=== PATIENT | female | born 1995 | race Two or more races ===

== ENCOUNTER 2016-07-06 14:54 | Emergency (ER) | payer BC ==
[~2016-07-06] VITALS: Ht 154.9 cm; Wt 50.8 kg
[2016-07-06] MEDS ORDERED: predniSONE 20 MG TABLET ONE (15:00)
[2016-07-06] MEDS ORDERED: ALBUTEROL FS 2.5 MG/3 ML VIAL.NEB ONE (15:02)
[2016-07-06] MEDS ORDERED: IPRATROPIUM NEB FS 0.5 MG/2.5 ML AMPUL.NEB ONE (15:02)
[2016-07-06] MEDS ORDERED: predniSONE 20 MG TABLET PO ONE (15:30)
[2016-07-06] MEDS ORDERED: ALBUTEROL FS 2.5 MG/3 ML VIAL.NEB CONTNEB ONE (15:30)
[2016-07-06] MEDS ORDERED: IPRATROPIUM NEB FS 0.5 MG/2.5 ML AMPUL.NEB NEB ONE (15:30)
--- NOTE | 2016-07-06 16:00 | NUR ---
PT. VERBALIZED UNDERSTANDING OF AFTERCARE INSTRUCTIONS.Patient discharged to home in stable condition. Written and verbal after care instructions given. Patient verbalizes understanding of instruction.
[2016-07-06 16:01] VITALS: BP 121/87
== END 2016-07-06 16:02 | disposition home or self-care (01) ==
LOC: ER 15:00
DX: J45.909 Unspecified asthma, uncomplicated (principal); F41.9 Anxiety disorder, unspecified
CPT/HCPCS: 94640; 99283; A4606; J7512; Z7610

== ENCOUNTER 2017-10-18 18:17 | Emergency (ER) | payer BC ==
[~2017-10-18] VITALS: Ht 154.9 cm; Wt 52.2 kg
--- NOTE | 2017-10-18 18:20 | NUR ---
PT RTO ER BED 05 C/O ABDOMIANL CRAMPING W/ VAGINAL BLEEDING SINCE 299 TODAY. GOWNED AND PLACED ON MONITOR. VSS. AWAITING MD ANDRES.
--- NOTE | 2017-10-18 20:28 | NUR ---
GUDELIA CASTILLO AT BEDSIDE FOR EVAL.
[2017-10-18] MEDS ORDERED: IV NS 0.9% 1,000 ML BAG IV ONE (20:30)
[2017-10-18] MEDS ORDERED: ACETAMINOPHEN 325 MG TABLET PO ONE (20:30)
--- NOTE | 2017-10-18 20:32 | NUR ---
ORESTES CASTILLO BACK AT BEDSIDE FOR PELVIC EXAM.
--- NOTE | 2017-10-18 20:48 | NUR ---
U/S TECH AT BEDSIDE FOR PELVIC ULTRASOUND.
[2017-10-18] MEDS ORDERED: ACETAMINOPHEN 325 MG TABLET ONE (20:55)
[2017-10-18 21:40] LABS: BASOPHILS % (AUTO) 0.6 % (0.0-2.0); EOSINOPHILS % (AUTO) 3.1 % (0.0-6.0); HEMATOCRIT 42 % (33-45); HEMOGLOBIN 13.8 g/dL (11.5-14.8); LYMPHOCYTES % (AUTO) 27.4 % (20.0-44.0); MEAN CORPUSCULAR HEMOGLOBIN 29 PG (26.0-33.0); MEAN CORPUSCULAR HGB CONC 33 g/dl (31.0-36.0); MEAN CORPUSCULAR VOLUME 88 fL (82-100); MONOCYTES # (AUTO) 0.5 /CMM (0.1-1.30); MONOCYTES % (AUTO) 7.4 % (2.0-12.0); NEUTROPHILS # (AUTO) 4.5 /CMM (1.8-8.9); NEUTROPHILS % (AUTO) 61.5 % (43.0-81.0); PLATELET COUNT (AUTO) 234 /CMM (150-450); RDW COEFFICIENT OF VARIATION 12.9 (11.5-15.0); RED BLOOD CELL COUNT(AUTO) 4.77 MIL/uL (4.0-5.2); WHITE BLOOD COUNT (AUTO) 7.2 K/uL (4.3-11.0)
[2017-10-18 21:42] LABS: APPEARANCE,URINE Slightly Cloudy (CLEAR); BILIRUBIN,URINE Negative (NEGATIVE); BLOOD, URINE Large Ery/uL (NEGATIVE); COLOR,URINE Yellow (YELLOW); KETONES,URINE Negative (NEGATIVE); LEUKOCYTE ESTERASE ,URINE Negative (NEGATIVE); NITRITE, URINE Negative (NEGATIVE); PH,URINE 7.5 (5.0-8.0); PROTEIN,URINE 30 mg/dl (NEGATIVE); UGLUCOSE Negative (NEGATIVE)
[2017-10-18 21:50] LABS: CALCIUM, SERUM 8.5 mg/dL (8.5-10.1); POTASSIUM 3.9 mmol/L (3.5-5.1)
[2017-10-18 21:58] LABS: INR 0.99 (0.85-1.15)
[2017-10-18 21:58] LABS: BACTERIA,URINE Rare /HPF (None Seen); RBC,URINE 21-50 /HPF (0-2); SQUAMOUS EPITHELIAL CELL,UR Few /HPF (None Seen); WBC,URINE NONE SEEN /HPF (0-3)
--- NOTE | 2017-10-18 22:46 | NUR ---
Patient discharged to home in stable condition. Written and verbal after care instructions given. Patient verbalizes understanding of instruction.IV removed. Catheter intact and site benign. Pressure and 4x4 applied to site. No bleeding noted.
[2017-10-18 22:49] VITALS: BP 116/77
== END 2017-10-18 22:50 | disposition home or self-care (01) ==
LOC: ER 18:18
DX: N93.9 Abnormal uterine and vaginal bleeding, unspecified (principal); T19.2XXA Foreign body in vulva and vagina, initial encounter; N94.89 Other specified conditions associated with female genital organs and menstrual cycle; J45.909 Unspecified asthma, uncomplicated; F41.9 Anxiety disorder, unspecified; Z98.890 Other specified postprocedural states; X58.XXXA Exposure to other specified factors, initial encounter; Y93.89 Activity, other specified; Y92.89 Other specified places as the place of occurrence of the external cause; Y99.8 Other external cause status
CPT/HCPCS: 36415; 76856; 80048; 81001; 84703; 85025; 85730; 99285; A4606; J7030; Z7610; 81000-TC

== ENCOUNTER 2019-07-09 21:26 | Emergency (ER) | payer BC ==
[~2019-07-09] VITALS: Ht 157.5 cm; Wt 49.9 kg
--- NOTE | 2019-07-09 21:44 | NUR ---
SEEN AND EXAMINED BY ANNA PARDO.
--- NOTE | 2019-07-09 21:48 | NUR ---
PATIENT CAME TO ER BED 7 C/O SHORTNESS OF BREATH SINCE 1x HOUR AGO. PATIENT STATES THAT SHE TOOK INHALER-ALBUTEROL WITH NO RELIEF. PATIENT STATES THAT SHE HAS BEEN FEELING NAUSEOUS. PATIENT STATES THAT SHE HAS BEEN HAVING ON AND OFF DIARRHEA. AAOX4. BREATHING EVENLY ON ROOM AIR. CONNECTED TO [employer].
--- NOTE | 2019-07-09 21:57 | NUR ---
BLOOD, URINE, AND GODDARD VIRUS SWAB SAMPLE TAKEN TO THE LAB.
[2019-07-09] MEDS ORDERED: IV NS 0.9% 1,000 ML BAG IV ONE (22:00)
[2019-07-09] MEDS ORDERED: LORAZEPAM INJ 2 MG/ML VIAL IV ONE (22:00)
[2019-07-09] MEDS ORDERED: LORAZEPAM INJ 2 MG/ML VIAL ONE (22:01)
[2019-07-09 22:04] LABS: BASOPHILS # (AUTO) 0.1 /CMM (0.0-0.2); BASOPHILS % (AUTO) 0.8 % (0.0-2.0); HEMATOCRIT 43 % (33-45); HEMOGLOBIN 14.5 g/dL (11.5-14.8); LYMPHOCYTES # (AUTO) 1.9 /CMM (0.8-4.8); MEAN CORPUSCULAR HGB CONC 34 g/dl (31.0-36.0); MEAN CORPUSCULAR VOLUME 91 fL (82-100); MONOCYTES # (AUTO) 0.4 /CMM (0.1-1.30); MONOCYTES % (AUTO) 5.2 % (2.0-12.0); NEUTROPHILS # (AUTO) 5.9 /CMM (1.8-8.9); PLATELET COUNT (AUTO) 293 /CMM (150-450); RED BLOOD CELL COUNT(AUTO) 4.71 MIL/uL (4.0-5.2); WHITE BLOOD COUNT (AUTO) 8.6 K/uL (4.3-11.0)
[2019-07-09 22:12] LABS: APPEARANCE,URINE Clear (CLEAR); BILIRUBIN,URINE Negative (NEGATIVE); BLOOD, URINE Trace-lysed Ery/uL (NEGATIVE); COLOR,URINE Yellow (YELLOW); KETONES,URINE Negative (NEGATIVE); LEUKOCYTE ESTERASE ,URINE Negative (NEGATIVE); NITRITE, URINE Negative (NEGATIVE); PROTEIN,URINE Negative (NEGATIVE); UGLUCOSE Negative (NEGATIVE); UROBILINOGEN,URINE 0.2 EU/dL (0.2)
[2019-07-09 22:15] LABS: CALCIUM, SERUM 9.5 mg/dL (8.5-10.1); POTASSIUM 3.1 mmol/L (3.5-5.1)
[2019-07-09 22:21] LABS: ALBUMIN 4.2 g/dL (3.4-5.0); BILIRUBIN,DIRECT 0.1 mg/dL (0.0-0.2); BILIRUBIN,TOTAL 0.3 mg/dL (0.2-1.0); TOTAL PROTEIN, SERUM 8.3 g/dL (6.4-8.2)
[2019-07-09] MEDS ORDERED: POTASSIUM CHLORIDE 20 MEQ TAB.PRT.SR PO ONE ×2 (22:30→22:35)
[2019-07-09 22:31] LABS: MAGNESIUM 1.8 mg/dL (1.8-2.4)
[2019-07-09 22:38] LABS: BACTERIA,URINE None seen /HPF (None Seen); RBC,URINE 0-2 /HPF (0-2); SQUAMOUS EPITHELIAL CELL,UR Few /HPF (None Seen); WBC,URINE 0-2 /HPF (0-3)
[2019-07-09 22:57] LABS: THYROID STIMULATING HORMONE 4.986 uIU/mL (0.358-3.74)
[2019-07-09] MEDS ORDERED: predniSONE 20 MG TABLET PO ONE (23:00)
[2019-07-09] MEDS ORDERED: predniSONE 20 MG TABLET ONE (23:10)
[2019-07-09 23:29] VITALS: BP 137/88
--- NOTE | 2019-07-09 23:29 | NUR ---
Patient discharged to home in stable condition. Written and verbal after care instructions given. Patient verbalizes understanding of instruction.
--- NOTE | 2019-07-09 23:29 | NUR ---
IV removed. Catheter intact and site benign. Pressure and 4x4 applied to site. No bleeding noted.
== END 2019-07-09 23:30 | disposition home or self-care (01) ==
LOC: ER 21:28
DX: J45.909 Unspecified asthma, uncomplicated (principal); E87.6 Hypokalemia; F19.10 Other psychoactive substance abuse, uncomplicated; Z20.828 Contact with and (suspected) exposure to other viral communicable diseases; R00.0 Tachycardia, unspecified; F41.9 Anxiety disorder, unspecified
CPT/HCPCS: 36415; 71045; 80048; 80076; 80305; 81001; 83735; 84443; 84484; 84703; 85025; 85378; 93005 ×2; 96361; 96374; 99285; J2060; J7030; J7512; U0003; 81000-TC

== ENCOUNTER 2019-10-27 15:22 | Emergency (ER) | payer BC ==
[~2019-10-27] VITALS: Ht 154.9 cm; Wt 54.0 kg
--- NOTE | 2019-10-27 15:23 | NUR ---
ER BED 9 PT CAME TO ER WITH C/O SOB. STATES THAT HER INHALERS HAVENT BEEN WORKING FOR ASTHMA. VS CHECKED. HOOKED ON MONITOR. IV STARTED ON R AC. INTACT AND PATENT AND FLUSHING WELL.
[2019-10-27] MEDS ORDERED: methylPREDNISolone SOD SUCC 125 MG/2ML VIAL ONE (15:28)
[2019-10-27] MEDS ORDERED: ALBUTEROL FS 2.5 MG/0.5 ML VIAL.NEB NEB ONE (15:30)
[2019-10-27] MEDS ORDERED: IPRATROPIUM NEB FS 0.5 MG/2.5 ML AMPUL.NEB NEB ONE (15:30)
[2019-10-27] MEDS ORDERED: methylPREDNISolone SOD SUCC 125 MG/2ML VIAL IV ONE (15:30)
[2019-10-27] MEDS ORDERED: ALBUTEROL FS 2.5 MG/3 ML VIAL.NEB ONE (15:33)
[2019-10-27] MEDS ORDERED: IPRATROPIUM NEB FS 0.5 MG/2.5 ML AMPUL.NEB ONE (15:33)
[2019-10-27] MEDS ORDERED: NORG1TAB73 PO (15:39)
[2019-10-27] MEDS ORDERED: FLUT1BLS INH (15:39)
[2019-10-27] MEDS ORDERED: ALBU90AE INH (15:39)
--- NOTE | 2019-10-27 16:32 | NUR ---
IV removed. Catheter intact and site benign. Pressure and 4x4 applied to site. No bleeding noted.Patient discharged to home in stable condition. Written and verbal after care instructions given. Patient verbalizes understanding of instruction.
[2019-10-27 16:34] VITALS: BP 131/66
== END 2019-10-27 16:35 | disposition home or self-care (01) ==
LOC: ER 15:27
DX: J45.909 Unspecified asthma, uncomplicated (principal); F41.9 Anxiety disorder, unspecified; Z98.890 Other specified postprocedural states; Z79.899 Other long term (current) drug therapy
CPT/HCPCS: 94640; 96374; 99283; J2930